=== PATIENT | male | born 1995 | race Caucasian/White ===

== ENCOUNTER → 2016-05-12 | Outpatient (REF) | payer MEDICAID ==
[~2016-05-12] MED LIST: DIVA250T7 PO; FLUO20CA9 PO; GEOD40CA2 PO; HYDR25T PO; LEXA1TAB PO; MINI2CAP PO; MIRT15TA3 PO; NO HOME MEDS; RISP0.5T3 PO; TRAZO50TA PO; VIST25CA PO; ZIPR20CA13 PO
[2016-05-12 14:01] LABS: ALBUMIN 4.1 GM/DL (3.2-5.2); ALBUMIN/GLOBULIN RATIO 1.37 (1.00-1.93); ALKALINE PHOSPHATASE 68 U/L (45-117); ALT/SGPT 29 U/L (12-78); ANION GAP 7 MEQ/L (8-16); AST/SGOT 16 U/L (15-37); BILIRUBIN,TOTAL 0.3 MG/DL (0.2-1.0); BLOOD UREA NITROGEN 15 MG/DL (7-18); CARBON DIOXIDE LEVEL 32 MEQ/L (21-32); CHLORIDE LEVEL 102 MEQ/L (98-107); CREATININE FOR GFR 0.88 MG/DL (0.70-1.30); GLUCOSE, FASTING 71 MG/DL (70-105); POTASSIUM SERUM 4.2 MEQ/L (3.5-5.1); SODIUM LEVEL 141 MEQ/L (136-145); TOTAL PROTEIN 7.1 GM/DL (6.4-8.2)
== END ==
LOC: M SFHCPLAZ 10:47
PROVIDERS: ATTEND Nurse Practitioner Adult Health
DX: R68.81 Early satiety (principal)

== ENCOUNTER → 2016-08-28 | Outpatient (CLI) | payer MEDICAID ==
--- NOTE | 2016-08-29 09:08 | EEG ---
DATE OF PROCEDURE: 08/28/2016 REFERRING PHYSICIAN: Dr. Ray Pride DIAGNOSES: Post-traumatic stress disorder and history of a passing out spell. This EEG was done to rule out epileptic potential. He is currently taking Geodon, Remeron, trazodone, Prozac. TECHNICAL DESCRIPTION: This digital EEG was recorded by 21 scalp, ear and two EKG electrodes and was reviewed in bipolar and referential montages following reformatting in 10-20 International Electrode Placement System. INTERPRETATION: The patient was noted to be in awake and drowsy states during this EEG. Resting awake background rhythm consisted of well-formed posterior dominant rhythm with anterior/posterior gradient comprising of 9 Hz alpha activity measuring 15 - 40 microvolts in amplitude, which was symmetric and reactive to eye opening. Low voltage mixed frequency activity was noted in anterior leads. Hyperventilation elicited mild theta slowing of background. Stage I and II sleep were reviewed and were symmetric bilaterally. Photic stimulation remained unremarkable. EKG revealed normal sinus rhythm. No focal, lateralizing or epileptiform abnormalities were seen. No clinical or electrographic seizures were recorded. CONCLUSION: This EEG in awake, drowsy states, stage I and II sleep is within normal limits.
== END ==
LOC: M SLEEP 10:58
PROVIDERS: ATTEND Nurse Practitioner Psychiatric/Mental Health
DX: F43.11 Post-traumatic stress disorder, acute (principal)

== ENCOUNTER → 2016-08-28 | Outpatient (CLI) | payer MEDICAID ==
--- NOTE | 2016-08-28 13:38 | REP ---
THORACIC SPINE, THREE VIEWS: HISTORY: Low back pain. There is no acute fracture or subluxation. The intervertebral discs are normal in height. There is minimal scoliosis of the upper thoracic spine, convex to the right and lower thoracic spine convex to the left. IMPRESSION: There is no acute fracture or subluxation. Signed by Theron Tello MD 08/28/2016 01:44 P
--- NOTE | 2016-08-28 13:39 | REP ---
LUMBAR SPINE, FIVE VIEWS: HISTORY: Back pain. COMPARISON: 08/15/2015 There is no acute fracture or subluxation. The intervertebral discs are normal in height. The facet joints are normal in appearance. IMPRESSION: There is no acute fracture or subluxation. Signed by Theron Tello MD 08/28/2016 01:44 P
== END ==
LOC: M RAD 12:33
PROVIDERS: ATTEND Nurse Practitioner Adult Health
DX: M54.5 Low back pain (principal)

== ENCOUNTER 2016-12-11 13:49 | Emergency (ER) | payer MEDICAID ==
[~2016-12-11] VITALS: Ht 154.9 cm; Wt 59.9 kg
[~2016-12-11 13:49] MED LIST changes: +FLUO20CA19 PO; -FLUO20CA9 PO; +HYDR-3363 PO; -HYDR25T PO
[2016-12-11] MEDS ORDERED: TRAZ50TA11 PO (14:07)
[2016-12-11] MEDS ORDERED: GEOD60CA PO (14:07)
[2016-12-11 14:20] LABS: BASO % 0.8 % (0.0-1.0); EOS # 0.1 K/mm3 (0.0-0.50); EOS % 1.7 % (0.0-3.0); LARGE UNSTAINED CELL # 0.1 K/mm3 (0.0-0.4); LYMPH # 2.7 K/mm3 (1.5-6.5); LYMPH % 51.8 % (24.0-44.0); MEAN CORPUSCULAR HEMOGLOBIN 30.9 pg (27.0-33.0); MEAN CORPUSCULAR HGB CONC 35.2 g/dl (32.0-36.5); MEAN CORPUSCULAR VOLUME 87.9 fl (80.0-96.0); MONO # 0.3 K/mm3 (0.0-0.8); MONO % 5.3 % (0.0-5.0); NEUTROPHILS # 1.9 K/mm3 (1.8-7.7); NEUTROPHILS % 38.5 % (36.0-66.0); PLATELET COUNT, AUTOMATED 211 k/mm3 (150-450); RED CELL DISTRIBUTION WIDTH 11.9 % (11.5-14.5)
[2016-12-11 14:43] LABS: ALBUMIN 4.2 GM/DL (3.2-5.2); ALKALINE PHOSPHATASE 47 U/L (45-117); ALT/SGPT 35 U/L (12-78); ANION GAP 8 MEQ/L (8-16); AST/SGOT 19 U/L (15-37); BILIRUBIN,DIRECT 0.2 MG/DL (0.0-0.2); BILIRUBIN,TOTAL 0.6 MG/DL (0.2-1.0); BLOOD UREA NITROGEN 17 MG/DL (7-18); CALCIUM LEVEL 9.1 MG/DL (8.5-10.1); CARBON DIOXIDE LEVEL 26 MEQ/L (21-32); CHLORIDE LEVEL 103 MEQ/L (98-107); CREATININE FOR GFR 1.11 MG/DL (0.70-1.30); GLOMERULAR FILTRATION RATE > 60.0 (>60); GLUCOSE, FASTING 129 MG/DL (70-105); POTASSIUM SERUM 3.3 MEQ/L (3.5-5.1); SODIUM LEVEL 137 MEQ/L (136-145); TOTAL PROTEIN 7.2 GM/DL (6.4-8.2)
[2016-12-11 15:56] LABS: METHADONE URINE NEGATIVE (NEGATIVE)
[2016-12-11] MEDS ORDERED: POTASSIUM CHLORIDE 10 MEQ SR TABLET PO ONE (16:15)
[2016-12-11 16:30] VITALS: BP 135/67
--- NOTE | 2016-12-11 21:00 | ECGEPIP ---
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
[2016-12-12] MEDS ORDERED: CBD oil (16:08)
[2016-12-12] MEDS ORDERED: kratom (16:08)
== END 2016-12-11 16:41 | disposition home or self-care (01) ==
LOC: M ED 13:49
DX: R55 Syncope and collapse (principal); F19.10 Other psychoactive substance abuse, uncomplicated; F41.9 Anxiety disorder, unspecified; F43.10 Post-traumatic stress disorder, unspecified; F60.3 Borderline personality disorder; F17.200 Nicotine dependence, unspecified, uncomplicated; Z79.899 Other long term (current) drug therapy; Z88.0 Allergy status to penicillin

== ENCOUNTER 2016-12-12 15:58 | Emergency (ER) | payer MEDICAID ==
[~2016-12-12] VITALS: Ht 167.6 cm; Wt 59.0 kg
[~2016-12-12 15:58] MED LIST changes: +GEOD60CA PO; +TRAZ50TA11 PO
[2016-12-12] MEDS ORDERED: CBD oil (16:08)
[2016-12-12] MEDS ORDERED: kratom (16:08)
[2016-12-12] MEDS ORDERED: NS 1,000 ML IV ONE (16:45)
[2016-12-12] MEDS ORDERED: ALPRAZolam 0.25 MG TAB PO ONE (16:45)
[2016-12-12 17:14] LABS: BASO % 0.2 % (0.0-1.0); EOS # 0.1 K/mm3 (0.0-0.50); EOS % 0.9 % (0.0-3.0); LARGE UNSTAINED CELL # 0.1 K/mm3 (0.0-0.4); LARGE UNSTAINED CELL % 1.4 % (0.0-4.0); LYMPH # 1.7 K/mm3 (1.5-6.5); LYMPH % 26.8 % (24.0-44.0); MEAN CORPUSCULAR HEMOGLOBIN 31.2 pg (27.0-33.0); MEAN CORPUSCULAR HGB CONC 35.6 g/dl (32.0-36.5); MEAN CORPUSCULAR VOLUME 87.7 fl (80.0-96.0); MONO # 0.2 K/mm3 (0.0-0.8); MONO % 3.7 % (0.0-5.0); NEUTROPHILS # 4.3 K/mm3 (1.8-7.7); NEUTROPHILS % 66.9 % (36.0-66.0); PLATELET COUNT, AUTOMATED 231 k/mm3 (150-450); RED CELL DISTRIBUTION WIDTH 11.7 % (11.5-14.5); WHITE BLOOD COUNT 6.5 K/mm3 (4.0-10.0)
[2016-12-12 17:37] LABS: METHADONE URINE NEGATIVE (NEGATIVE)
[2016-12-12 17:38] LABS: ANION GAP 8 MEQ/L (8-16); AST/SGOT 22 U/L (15-37); BLOOD UREA NITROGEN 12 MG/DL (7-18); CALCIUM LEVEL 9.5 MG/DL (8.5-10.1); CARBON DIOXIDE LEVEL 27 MEQ/L (21-32); CHLORIDE LEVEL 105 MEQ/L (98-107); CREATININE FOR GFR 0.97 MG/DL (0.70-1.30); GLOMERULAR FILTRATION RATE > 60.0 (>60); GLUCOSE, FASTING 98 MG/DL (70-105); POTASSIUM SERUM 3.3 MEQ/L (3.5-5.1); SODIUM LEVEL 140 MEQ/L (136-145)
[2016-12-12 17:39] LABS: ALBUMIN 4.6 GM/DL (3.2-5.2); ALBUMIN/GLOBULIN RATIO 1.53 (1.00-1.93); ALKALINE PHOSPHATASE 54 U/L (45-117); ALT/SGPT 38 U/L (12-78); BILIRUBIN,TOTAL 0.6 MG/DL (0.2-1.0); MAGNESIUM LEVEL 2.1 MG/DL (1.8-2.4); TOTAL PROTEIN 7.6 GM/DL (6.4-8.2)
--- NOTE | 2016-12-12 17:41 | ED PDOC ---
Post-Departure Follow-Up PT WAS SEEN IN THE ER YESTERDAY FOR SAME. WAS TOLD HIS POTASSIUM WAS "VERY LOW, THEY GAVE ME SOME AND SENT ME HOME." PT ALSO STATES THAT WHILE HE WAS IN THE ER YESTERDAY, "MY HEART RATE DIPPED DOWN TO [address] UP OVER 100 AND I TOLD THE NURSE TO SEND SOMEONE IN AND NO ONE EVEN CAME IN. I SAW IT ON THE MONITOR." FEMALE IN ROOM WITH PT STATED, "I DON'T KNOW IF HE'S SAFE AT HOME WHEN HE'S LIKE THIS." PT STATES THIS ALL BEGAN "WHEN I OVERDOSED AT WORK. I TAKE KRATOM THAT I BUY ONLINE AND I TOOK TOO MUCH OF IT AND IT CAN CAUSE RESPIRATORY DEPRESSION AND SINCE THEN MY BODY HAS BEEN DETERIORATING." PT'S POTASSIUM YESTERDAY WAS 3.3. PT SITTING IN WHEEL CHAIR IN EXAM ROOM WITH FINGERS FOLDED IN, NO CARPO-SPASM NOTED AND PT STATES, "MY BODY KEEPS SPASMING. " NO HYPERVENTILATION NOTED, PT WITH CALM RESPIRATIONS IN EXAM ROOM. LAWRENCE CROOKS PA-C Dec 12, 2016 17:41
[2016-12-12 17:48] VITALS: BP 129/73
--- NOTE | 2016-12-12 18:06 | REP ---
CHEST, TWO VIEWS: There is no evidence of acute infiltrate. No pleural effusion is seen. The heart is normal in size. The mediastinal silhouette is unremarkable. The visualized osseous structures are intact. IMPRESSION: No acute pulmonary disease. Signed by Wilfrido Johnson MD 12/15/2016 12:48 P
--- NOTE | 2016-12-12 20:00 | ECGEPIP ---
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 12/11/16 - RATE DECREASED Electronically Signed On 12-12-2016 20:00:40 EDT by Diane Shi
== END 2016-12-12 18:22 | disposition home or self-care (01) ==
LOC: M ED 15:58
DX: F41.9 Anxiety disorder, unspecified (principal); R07.89 Other chest pain; R94.31 Abnormal electrocardiogram [ECG] [EKG]; F32.9 Major depressive disorder, single episode, unspecified; F10.10 Alcohol abuse, uncomplicated; G40.909 Epilepsy, unspecified, not intractable, without status epilepticus; Z79.899 Other long term (current) drug therapy; Z88.0 Allergy status to penicillin
CPT/HCPCS: 36415; 71020; 80053; 80307; 82550; 82553; 83735; 85025; 85379; 93005; 93041; 96360; 99284; G0480

== ENCOUNTER → 2016-12-16 | Outpatient (CLI) | payer MEDICAID ==
[~2016-12-16] MED LIST changes: +CBD oil; +ISOVUE-370 76% 100ML VIAL (Q9967) As Ordered ONE; +kratom
--- NOTE | 2016-12-16 18:55 | REP ---
REASON: Dyspnea and chest pain. COMPARISON: None. There is excellent visualization of the pulmonary arterial vasculature. There are no focal filling defects present that would be considered consistent with pulmonary emboli. There are no pleural or pericardial effusions. There is no mediastinal or hilar adenopathy. The imaged upper abdomen and imaged osseous structures are within normal limits. Evaluation of the lung altamirano show no abnormal nodules, masses, or opacities. IMPRESSION: Normal exam. Signed by Rory Adams DO 12/16/2016 07:49 P
== END ==
LOC: M RAD 16:47
PROVIDERS: ATTEND Nurse Practitioner Adult Health
DX: R06.02 Shortness of breath (principal)

== ENCOUNTER → 2016-12-23 | Outpatient (CLI) | payer MEDICAID ==
[~2016-12-23] MED LIST changes: -ISOVUE-370 76% 100ML VIAL (Q9967) As Ordered ONE; +METHACHOLINE KIT (J7674) INH ONE
--- NOTE | 2016-12-23 16:34 | PFTRPT ---
Tech: Rashmi WALLER RRT Age: 21 Sex: Male Race: Height: 66.00 Inches Weight: 135.00 Lbs BSA: 1.69 Diagnosis: R06.02 METHACHOLINE CHALLENGE REPORT: ORDERING PROVIDER: SHANNON Hernandez DATE OF SERVICE: 12/23/16 INTERPRETATION: The study was of excellent technical quality. Under protocol, methacholine was administered. At a dose of 2.5 mg (13.875 CDUs), a 36% decline in the FEV1 was noted. The PC20 of 0.72 is significant. Flow rates returned to baseline post bronchodilator administration. IMPRESSION: Positive methacholine challenge study. MTDD
--- NOTE | 2016-12-23 16:34 | PFTRPT ---
Tech: Rashmi WALLER RRT Age: 21 Sex: Male Race: Height: 66.00 Inches Weight: 135.00 Lbs BSA: 1.69 Diagnosis: R06.02 PULMONARY FUNCTION REPORT ORDERING PROVIDER: SHANNON Hernandez DATE OF SERVICE: 12/23/16 SPIROMETRY: Excellent technical quality. The forced vital capacity is normal. The FEV1 is in proportion. The obstructive index is, therefore, normal. FLOW VOLUME LOOP: The expiratory limb of the flow volume loop is normal. LUNG VOLUMES: The total lung capacity is normal. The residual volume is in proportion. DIFFUSION CAPACITY: The diffusion capacity is normal. HEMOGLOBIN: No hemoglobin is available for correction. AIRWAY MECHANICS: Airways resistance and conductance are normal. IMPRESSION: Normal study. MTDD
== END ==
LOC: M CARPUL 15:30
PROVIDERS: ATTEND Nurse Practitioner Adult Health
DX: R06.02 Shortness of breath (principal)
CPT/HCPCS: 94010; 94070; 94726; 94729; J7674

== ENCOUNTER 2017-06-04 15:02 | Emergency (ER) | payer MEDICAID ==
[2017-06-04 17:31] LABS: BASO % 0.5 % (0.0-1.0); EOS # 0.1 10^3/uL (0.0-0.50); EOS % 1.4 % (0.0-3.0); HEMATOCRIT 45.3 % (42.0-52.0); HEMOGLOBIN 16.4 g/dl (14.0-18.0); IMMATURE GRANULOCYTE % 0.2 % (0-0); LYMPH # 2.2 10^3/uL (1.5-6.5); LYMPH % 33.8 % (24.0-44.0); MEAN CORPUSCULAR HEMOGLOBIN 30.7 pg (27.0-33.0); MEAN CORPUSCULAR HGB CONC 36.2 g/dl (32.0-36.5); MEAN CORPUSCULAR VOLUME 84.7 fl (80.0-96.0); MONO # 0.4 10^3/uL (0.0-0.8); MONO % 5.7 % (0.0-5.0); NEUTROPHILS # 3.8 10^3/uL (1.8-7.7); NEUTROPHILS % 58.4 % (36.0-66.0); PLATELET COUNT, AUTOMATED 227 10^3/uL (150-450); RED BLOOD COUNT 5.35 10^6/uL (4.30-6.10); RED CELL DISTRIBUTION WIDTH 11.8 % (11.5-14.5); WHITE BLOOD COUNT 6.5 10^3/uL (4.0-10.0)
[2017-06-04 17:40] LABS: APPEARANCE, URINE CLEAR (CLEAR); BACTERIA, URINE AUTO NEGATIVE (NEGATIVE); BILIRUBIN, URINE AUTO NEGATIVE (NEGATIVE); BLOOD, URINE BLOOD NEGATIVE (NEGATIVE); COLOR, URINE STRAW (YELLOW); GLUCOSE, URINE (UA) AUTO NEGATIVE (NEGATIVE); KETONE, URINE AUTO NEGATIVE (NEGATIVE); LEUKOCYTE ESTERASE, URINE AUTO NEGATIVE (NEGATIVE); NITRITE, URINE AUTO NEGATIVE (NEGATIVE); PROTEIN, URINE AUTO NEGATIVE (NEGATIVE); RBC, URINE AUTO 0 /HPF (0-3); SPECIFIC GRAVITY URINE AUTO 1.001 (1.002-1.035); SQUAMOUS EPITHELIAL CELL UR AU 0 /HPF (0-6); UROBILINOGEN, URINE AUTO 0.2 mg/dL (0.0-2.0); WBC, URINE AUTO 0 /HPF (0-3)
[2017-06-04 18:01] LABS: ALBUMIN 4.5 GM/DL (3.2-5.2); ALBUMIN/GLOBULIN RATIO 1.61 (1.00-1.93); ALKALINE PHOSPHATASE 53 U/L (45-117); ALT/SGPT 46 U/L (12-78); ANION GAP 7 MEQ/L (8-16); AST/SGOT 18 U/L (7-37); BILIRUBIN,DIRECT 0.2 MG/DL (0.0-0.2); BILIRUBIN,TOTAL 0.5 MG/DL (0.2-1.0); BLOOD UREA NITROGEN 14 MG/DL (7-18); CALCIUM LEVEL 8.8 MG/DL (8.5-10.1); CARBON DIOXIDE LEVEL 27 MEQ/L (21-32); CHLORIDE LEVEL 107 MEQ/L (98-107); CPK CREATINE PHOSPHOKINASE 161 U/L (39-308); CREATININE FOR GFR 0.83 MG/DL (0.70-1.30); GLOMERULAR FILTRATION RATE > 60.0 (>60); GLUCOSE, FASTING 92 MG/DL (70-100); LIPASE 186 U/L (73-393); MAGNESIUM LEVEL 2.2 MG/DL (1.8-2.4); POTASSIUM SERUM 3.8 MEQ/L (3.5-5.1); SODIUM LEVEL 141 MEQ/L (136-145); TOTAL PROTEIN 7.3 GM/DL (6.4-8.2); TROPONIN I < 0.02 NG/ML (< 0.10)
[2017-06-04 18:07] LABS: CK-MB VALUE MASS 1.4 NG/ML (0.0-3.6); FREE T4 0.92 NG/DL (0.76-1.46); MB/CK RELATIVE INDEX 0.86 (< OR =4); THYROID STIMULATING HORMONE 0.766 uIU/ML (0.358-3.740)
== END 2017-06-04 18:32 | disposition home or self-care (01) ==
LOC: M ED 15:02
DX: R07.89 Other chest pain (principal); R19.7 Diarrhea, unspecified; F17.200 Nicotine dependence, unspecified, uncomplicated
CPT/HCPCS: 93005

== ENCOUNTER 2018-03-16 20:11 | Emergency (ER) | payer MEDICAID | END 2018-03-16 22:50 | disposition left against medical advice (07) | LOC: M ED 20:11 | DX: Z53.29 Procedure and treatment not carried out because of patient's decision for other reasons (principal) ==

== ENCOUNTER → 2018-08-02 | Outpatient (REF) | payer OTHER ==
[~2018-08-02] MED LIST changes: +GEOD40CA13 PO; -GEOD40CA2 PO; +MELA1TAB15 PO; -METHACHOLINE KIT (J7674) INH ONE; +TRAZ-160 PO; -TRAZ50TA11 PO
[2018-08-04 10:28] LABS: HIV 1&2 SCREEN CENTAUR NEGATIVE (NEGATIVE)
== END ==
LOC: M SFHCPLAZ 14:52
PROVIDERS: ATTEND Nurse Practitioner Adult Health
DX: K14.8 Other diseases of tongue (principal); Z20.6 Contact with and (suspected) exposure to human immunodeficiency virus [HIV]

== ENCOUNTER 2019-01-03 20:02 | Inpatient (IN) | payer OTHER ==
[~2019-01-03] VITALS: Ht 167.6 cm; Wt 66.7 kg
[~2019-01-03 20:02] MED LIST changes: -TRAZ-160 PO; +TRAZ-252 PO; +TRAZ1TAB6 PO; -TRAZO50TA PO
[2019-01-03] MEDS ORDERED: LORazepam 2 MG/ML VIAL (J2060) IV ONE (20:45)
[2019-01-03] MEDS ORDERED: NS 1,000 ML IV ONE ×2 (20:45→22:00)
[2019-01-03 21:07] LABS: BASO % 0.3 % (0.0-1.0); EOS # 0.1 10^3/uL (0.0-0.5); EOS % 1.1 % (0.0-3.0); HEMATOCRIT 40.9 % (42.0-52.0); HEMOGLOBIN 14.5 g/dl (13.5-17.5); MEAN CORPUSCULAR HEMOGLOBIN 31.4 pg (27.0-33.0); MEAN CORPUSCULAR HGB CONC 35.5 g/dl (32.0-36.5); MEAN CORPUSCULAR VOLUME 88.5 fl (80.0-96.0); MONO # 0.7 10^3/uL (0.0-0.8); MONO % 10.8 % (0.0-5.0); NEUTROPHILS # 4.7 10^3/uL (1.5-8.5); NEUTROPHILS % 72.5 % (36.0-66.0); PLATELET COUNT, AUTOMATED 146 10^3/uL (150-450); RED BLOOD COUNT 4.62 10^6/uL (4.30-6.10); WHITE BLOOD COUNT 6.5 10^3/uL (4.0-10.0)
[2019-01-03 21:39] LABS: ACETAMINOPHEN LEVEL < 2.0 UG/ML (10.0-30.0); ALBUMIN 3.8 GM/DL (3.2-5.2); ALT/SGPT 32 U/L (12-78); BILIRUBIN,TOTAL 1.3 MG/DL (0.2-1.0); BLOOD UREA NITROGEN 14 MG/DL (7-18); CALCIUM LEVEL 8.8 MG/DL (8.5-10.1); CARBON DIOXIDE LEVEL 26 MEQ/L (21-32); CHLORIDE LEVEL 101 MEQ/L (98-107); CK-MB VALUE MASS 1.5 NG/ML (<3.6); CPK CREATINE PHOSPHOKINASE 181 U/L (39-308); CREATININE FOR GFR 0.76 MG/DL (0.70-1.30); ETHYL ALCOHOL (ETHANOL) < 0.003 % (0.000-0.010); GLOMERULAR FILTRATION RATE > 60.0 (>60); GLUCOSE, FASTING 79 MG/DL (70-100); MB/CK RELATIVE INDEX 0.83 (< OR =4); POTASSIUM SERUM 3.4 MEQ/L (3.5-5.1); SALICYLATE LEVEL < 1.7 MG/DL (5.0-30.0); SODIUM LEVEL 138 MEQ/L (136-145); THYROID STIMULATING HORMONE 0.424 uIU/ML (0.358-3.740); TOTAL PROTEIN 6.6 GM/DL (6.4-8.2); TROPONIN I < 0.02 NG/ML (< 0.10)
[2019-01-03] MEDS ORDERED: ACETAMINOPHEN TAB 650MG DOSE (2X325MG) PO ONE (22:00)
[2019-01-04 00:04] LABS: AMPHETAMINES LEVEL URINE NEGATIVE (NEGATIVE); BARBITURATES URINE NEGATIVE (NEGATIVE); BENZODIAZEPINES URINE NEGATIVE (NEGATIVE); CANNABINOIDS URINE NEGATIVE (NEGATIVE); COCAINE METABOLITE URINE NEGATIVE (NEGATIVE); METHADONE URINE NEGATIVE (NEGATIVE); OPIATES URINE NEGATIVE (NEGATIVE); PHENCYCLIDINE URINE NEGATIVE (NEGATIVE)
--- NOTE | 2019-01-04 00:52 | ECGEPIP ---
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
--- NOTE | 2019-01-04 07:44 | REP ---
Clinical: Fever . Comparison: 12/12/2016, 07/21/2018 . Findings: The mediastinum and cardiac silhouette are stable and within normal limits for portable technique. The lung altamirano are clear without acute consolidation, effusion, or pneumothorax. Skeletal structures are intact. Impression: No acute cardiopulmonary process appreciated. Electronically Signed by Leoncio Perez MD 01/04/2019 07:35 A
[2019-01-04] MEDS ORDERED: MOM 30ML SUSPENSION UDC PO PRN (16:00)
[2019-01-04] MEDS ORDERED: MAALOX 30 ML SUSP *UDC PO PRN (16:00)
[2019-01-04] MEDS ORDERED: LORazepam 1 MG TAB PO ONE (16:15)
[2019-01-04 22:03] VITALS: BP 124/73
[2019-01-04] MEDS: traZODone 50 MG TAB PO PRN (22:59)
[2019-01-05 07:05] VITALS: BP 103/55
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
--- NOTE | 2019-01-05 14:30 | HPE ---
DATE OF ADMISSION: 01/04/2019 HISTORY OF PRESENT ILLNESS: Patient is a 23-year-old male who is currently admitted to the inpatient mental health unit for depression. Patient says that he came into the hospital because he was feeling overwhelmed and he needed to get admitted into a mental health facility in order to get better. Patient reports that he does not have any chronic medical conditions. Patient says he does have a seizure history in the past due to a traumatic brain injury back when he was 9 years old. Patient says that he has not had a seizure for sometime stating his last in June. Patient says that he may have had a seizure either yesterday or today but he was told he did not have a seizure. In the emergency room, patient was found to have a fever of 101.2. While in the emergency room, patient's fever resolved and he has been afebrile every since. A chest x-ray was performed and did not show anything. Patient says he usually has a high body temperature for which he usually eats ice for. PAST MEDICAL HISTORY: Patient reports a past medical history of depression, anxiety, traumatic brain injury at the age of 9 and seizure history with the last reported seizure in June of 2018. PAST SURGICAL HISTORY: Patient denies any surgeries. ALLERGIES: Patient is allergic to PENICILLIN, BACITRACIN, NEOMYCIN POLYMYXIN B. MEDICATIONS: The patient does not take any medications at home. FAMILY HISTORY: Patient says he does not know his family history. SOCIAL HISTORY: Patient is a nkje-yth-voh smoker since he was 18. Started smoking at the age of 16. Patient says he quit drinking alcohol earlier this year. Patient says he quit using marijuana within the past couple of months and he also admits to IV drug use with puma being the drug he was injecting. Patient says he was tested for hepatitis C and has been negative in the past since his last IV drug use. REVIEW OF SYSTEMS: CONSTITUTIONAL: Patient denies fevers or chills. HEENT: Patient denies headache, blurry vision or sore throat. CARDIOVASCULAR: Patient denies chest pain. RESPIRATORY: Patient denies shortness of breath or cough. GASTROINTESTINAL: Patient denies abdominal pain, nausea or vomiting or diarrhea. GENITOURINARY: Patient denies any pain or difficulty with urination. NEUROLOGIC: Patient denies any numbness or tingling in his extremities. EXTREMITIES: Patient denies any pain or swelling in his extremities. SKIN: Patient denies any rashes or lesions of the skin. LYMPHATIC: Patient says he has some small lymph nodes in his neck and groin, which he says he has seen a doctor for who was concerned but he missed the followup appointment on them. Patient says they have been growing in size, however, they do not bother him and they are not tender. HEMATOLOGIC: Patient denies any easy bruising. PHYSICAL EXAMINATION: VITALS: 98.0, pulse 61, respiratory rate 12, blood pressure 103/55, pulse ox 98% in room air. GENERAL: He is alert and oriented male patient who was cooperative during the examination and was able to answer questions appropriately. Patient did not appear to be in any acute distress. HEENT: Normocephalic, atraumatic with anicteric sclerae. Patient has moist mucous membranes and posterior pharynx is not erythematous. NECK: Supple with shotty lymphadenopathy in the anterior cervical chain. There is no lymphadenopathy palpated in the posterior cervical chain, periauricular or submandibular nodes. CARDIOVASCULAR: Regular rate and rhythm with normal S1, and normal S2 with no murmurs, rubs or gallops. RESPIRATORY: Clear to auscultation bilaterally with on wheezes, rhonchi or rales. ABDOMEN: Normoactive bowel sounds. Soft, mild tenderness to the left upper quadrant. No tenderness to palpation in the other quadrants. GROIN: Shotty 0.5 cm lymph nodes in the groin. There was no axillary lymph node palpated. NEUROLOGICAL: Patient was able to move all four extremities. Patient reported good sensation to light touch in all four extremities. EXTREMITIES: There was pretibial edema. Pulses: Radial and dorsalis pedis were equal bilaterally. SKIN: Skin of the arms, legs, head and neck was examined. There is no evidence of rash. CBC: White blood cells 6.5, hemoglobin 14.5, hematocrit 40.9, platelet count 146. Sodium 138, potassium 3.4, chloride 101, bicarbonate 26, BUN 14, creatinine 0.76, glucose 79, calcium 8.8. Bilirubin 1.3, AST 23, ALT 32, alkaline phosphatase 72. Creatinine kinase 181, CK MB 1.5, troponin 0.02, protein 6.6, albumin 3.8. TSH 0.42. Tox screen was negative. Patient's alcohol level is also negative. IMAGING: A chest x-ray performed on 01/03/2019 showed no acute cardiopulmonary process. ASSESSMENT/PLAN: Patient is a 23-year-old male who is admitted into the inpatient mental health unit for further evaluation for depression and a "mental breakdown". 1. Psychiatric illness which he will follow the recommendations for psychiatry. 2. Seizure history: Patient reports that he has not had a seizure for about 6- 7 months. At this time patient is currently not on any medication. We will continue to monitor the patient should he need to have any antiseizure medications. At this time, I think we can continue without any antiseizure medication. Patient is advised to followup with his primary care provider after discharge for further workup and evaluation and treatment for possible seizure activity. Seizure activity seems like it is a sequelae of the patient's brain injury that the patient had when he was 9 years old. PLAN: Other than the seizure activity patient is medically cleared and if there are any questions, please do not hesitate to contact us. I performed a history and physical examination of the patient and discussed their management with the above documenter. I reviewed the note and agree with the documented findings and plan of care. RIOS
[2019-01-05 16:33] VITALS: BP 140/75
[2019-01-05] MEDS ORDERED: PALIPERIDONE 3 MG ER TAB (INVEGA) PO SCH (21:00)
[2019-01-05] MEDS: traZODone 50 MG TAB PO PRN (21:41)
[2019-01-06 06:50] VITALS: BP 100/55
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
[2019-01-06] MEDS: NICOTINE 21MG/24HR 1 EA TRANSDERMAL TD SCH (12:26)
[2019-01-06 17:30] VITALS: BP 124/78
[2019-01-06] MEDS: LORazepam 0.5 MG TAB PO PRN (18:01)
[2019-01-06] MEDS: ACETAMINOPHEN TAB 650MG DOSE (2X325MG) PO PRN (19:51)
[2019-01-06] MEDS: traZODone 100 MG TAB PO PRN (20:43)
[2019-01-07 06:53] VITALS: BP 126/63
[2019-01-07] MEDS: PALIPERIDONE 3 MG ER TAB (INVEGA) PO SCH (08:30)
[2019-01-07] MEDS: NICOTINE 21MG/24HR 1 EA TRANSDERMAL TD SCH ×2 (08:31→14:34)
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
[2019-01-07] MEDS: LORazepam 0.5 MG TAB PO PRN (13:34)
[2019-01-07] MEDS: ACETAMINOPHEN TAB 650MG DOSE (2X325MG) PO PRN (13:35)
[2019-01-07 18:16] VITALS: BP 137/74
[2019-01-07] MEDS: traZODone 100 MG TAB PO PRN (20:52)
[2019-01-08 06:05] VITALS: BP 115/55
[2019-01-08] MEDS: PALIPERIDONE 3 MG ER TAB (INVEGA) PO SCH (08:15)
[2019-01-08] MEDS: NICOTINE 21MG/24HR 1 EA TRANSDERMAL TD SCH (08:17)
[2019-01-08] MEDS: LORazepam 0.5 MG TAB PO PRN (08:18)
[2019-01-08] MEDS ORDERED: PILL CUTTER 1 EACH XX PRN (10:00)
[2019-01-08 16:27] VITALS: BP 140/70
[2019-01-08] MEDS: ACETAMINOPHEN TAB 650MG DOSE (2X325MG) PO PRN (20:48)
[2019-01-08] MEDS: traZODone 100 MG TAB PO PRN (20:48)
--- NOTE | 2019-01-08 21:51 | MHIPN ---
DATE: 01/08/2019 The patient today states "I am doing pretty good." He says that he is still having some depression on and off. He had some nightmares last night and that was really disturbing to him. MENTAL STATUS EXAMINATION: This patient is alert and oriented times three. He is verbally spontaneous. No formal thought disorder noted. Eye contact is fairly good. Mood is "pretty good." Affect is restricted but appropriate to mood. He is not psychotic, suicidal or homicidal. Concentration is good. Memory intact. Insight and judgment fair. DIAGNOSES: 1. Unspecified impulse/conduct disorder. 2. Rule out personality disorder versus substance induced. 3. Stimulant use disorder, unspecified. 4. Hallucinogen use disorder, unspecified. 5. Tobacco use disorder, severe . TREATMENT PLAN: At this point, we will continue to further evaluate this patient for continued elevation and stabilization of his mood and of his behavior and for continued resolution of any suicidal or homicidal ideation.
[2019-01-09 06:49] VITALS: BP 100/80
[2019-01-09] MEDS: NICOTINE 21MG/24HR 1 EA TRANSDERMAL TD SCH ×2 (08:59→19:05)
[2019-01-09] MEDS: PALIPERIDONE 3 MG ER TAB (INVEGA) PO SCH (08:59)
[2019-01-09] MEDS: ACETAMINOPHEN TAB 650MG DOSE (2X325MG) PO PRN ×2 (09:47→19:05)
[2019-01-09 16:40] VITALS: BP 122/67
[2019-01-09] MEDS: traZODone 100 MG TAB PO PRN (21:22)
[2019-01-09] MEDS: LORazepam 0.5 MG TAB PO PRN (21:22)
[2019-01-10 06:50] VITALS: BP 105/60
[2019-01-10] MEDS: PALIPERIDONE 3 MG ER TAB (INVEGA) PO SCH (09:00)
[2019-01-10] MEDS: NICOTINE 21MG/24HR 1 EA TRANSDERMAL TD SCH (09:00)
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
[2019-01-10] MEDS ORDERED: NICO21PAT TD (09:04)
== END 2019-01-10 13:30 | disposition home or self-care (01) | DRG 758 ==
LOC: M ED 20:02 → M ED INP 01-04 15:56 → M PSY 01-04 22:00
PROVIDERS: ADMIT Psychiatry & Neurology Addiction Medicine; ATTEND Psychiatry & Neurology Addiction Medicine
DX: F63.9 Impulse disorder, unspecified (principal); R45.850 Homicidal ideations; G40.909 Epilepsy, unspecified, not intractable, without status epilepticus; F15.90 Other stimulant use, unspecified, uncomplicated; F17.200 Nicotine dependence, unspecified, uncomplicated; F19.94 Other psychoactive substance use, unspecified with psychoactive substance-induced mood disorder; F43.10 Post-traumatic stress disorder, unspecified; F16.90 Hallucinogen use, unspecified, uncomplicated; Z91.410 Personal history of adult physical and sexual abuse; Z88.0 Allergy status to penicillin; Z88.8 Allergy status to other drugs, medicaments and biological substances

== ENCOUNTER 2019-02-12 18:34 | Emergency (ER) | payer OTHER ==
[~2019-02-12] VITALS: Ht 167.6 cm; Wt 63.6 kg
[~2019-02-12 18:34] MED LIST changes: +NICO21PAT TD
[2019-02-12 19:43] LABS: INFLUENZA A AMPLIFICATION NEGATIVE (NEGATIVE); INFLUENZA B AMPLIFICATION NEGATIVE (NEGATIVE)
[2019-02-12] MEDS ORDERED: DOXY100C (19:44)
[2019-02-12 19:59] LABS: HEMATOCRIT 48.6 % (42.0-52.0); HEMOGLOBIN 17.1 g/dl (13.5-17.5); MEAN CORPUSCULAR HEMOGLOBIN 30.6 pg (27.0-33.0); MEAN CORPUSCULAR HGB CONC 35.2 g/dl (32.0-36.5); MEAN CORPUSCULAR VOLUME 87.1 fl (80.0-96.0); PLATELET COUNT, AUTOMATED 139 10^3/uL (150-450); RED BLOOD COUNT 5.58 10^6/uL (4.30-6.10); WHITE BLOOD COUNT 2.6 10^3/uL (4.0-10.0)
[2019-02-12 20:15] LABS: ERYTHROCYTE SEDIMENTATION RATE 2 mm/hr (0-15)
[2019-02-12 20:21] LABS: ATYPICAL LYMPH 12 % (0-5); LYMPHOCYTES 40 % (16-44); MONOCYTES 2 % (0-5); NEUTROPHILS 46 % (28-66)
[2019-02-12 20:22] LABS: PLATELET ESTIMATE DECREASED (NORMAL)
[2019-02-12 20:25] LABS: BLOOD UREA NITROGEN 16 MG/DL (7-18); C REACTIVE PROTEIN QUANTITATIV 3.97 MG/DL (0.00-0.30); CALCIUM LEVEL 8.6 MG/DL (8.5-10.1); CARBON DIOXIDE LEVEL 29 MEQ/L (21-32); CHLORIDE LEVEL 104 MEQ/L (98-107); CREATININE FOR GFR 0.93 MG/DL (0.70-1.30); GLOMERULAR FILTRATION RATE > 60.0 (>60); GLUCOSE, FASTING 90 MG/DL (70-100); POTASSIUM SERUM 4.2 MEQ/L (3.5-5.1); SODIUM LEVEL 138 MEQ/L (136-145)
[2019-02-12 20:59] LABS: MONO SCRN NEGATIVE (NEGATIVE)
[2019-02-12 21:27] VITALS: BP 140/70
--- NOTE | 2019-02-13 09:02 | REP ---
REASON: Pyrexia. COMPARISON: Multiple, the latest 01/03/2019. TWO-VIEW CHEST: COMPARISON: No priors. FINDINGS: The superior mediastinal structures are midline. The cardiac silhouette is unremarkable in size, shape, and position. The diaphragmatic surfaces of the lungs are regular, and the costophrenic angles are clear. The pulmonary altamirano are clear. The imaged osseous structures are intact. IMPRESSION: There is no acute cardiopulmonary disease. Electronically Signed by Rory Adams DO 02/13/2019 09:11 A
--- NOTE | 2019-02-13 19:04 | ECGEPIP ---
[facility] - ED Test Date: 2019-02-12 Pat Name: JODI SALGADO Department: Room: - Gender: Male Critical Care Paramedic: : 1995 Requested By: ANNIE MERCHANT PA-C. Order Number: [id number] Reading MD: Emmanuel Hendrix Measurements Intervals [place] Rate: 64 P: 58 NH: 163 QRS: 47 QRSD: 89 T: 13 QT: 346 QTc: 358 Interpretive Statements SINUS RHYTHM WITH SINUS ARRHYTHMIA NONSPECIFIC T-WAVE ABNORMALITY Similar to tracing done 06-04-17 Electronically Signed on 02-13-2019 19:04:29 EDT by Emmanuel Hendrix
[2019-02-16 00:08] LABS: EBV AB TO NUCLEAR ANTIGEN <18.0 U/mL (0.0-17.9); EBV VIRAL CAPSID AG IgG 64.1 U/mL (0.0-17.9); EBV VIRAL CAPSID AG IgM <36.0 U/mL (0.0-35.9)
== END 2019-02-12 21:38 | disposition home or self-care (01) ==
LOC: M ED 18:34
DX: R50.9 Fever, unspecified (principal); D72.820 Lymphocytosis (symptomatic); D72.819 Decreased white blood cell count, unspecified; R94.31 Abnormal electrocardiogram [ECG] [EKG]; F17.210 Nicotine dependence, cigarettes, uncomplicated; Z88.0 Allergy status to penicillin; Z88.1 Allergy status to other antibiotic agents; Z88.4 Allergy status to anesthetic agent

== ENCOUNTER 2019-02-19 18:31 | Emergency (ER) | payer OTHER ==
[~2019-02-19] VITALS: Ht 167.6 cm; Wt 64.3 kg
[~2019-02-19 18:31] MED LIST changes: +DOXY100C
[2019-02-19] MEDS ORDERED: NS 1,000 ML IV ONE (19:15)
[2019-02-19] MEDS ORDERED: ONDANSETRON 4MG/2ML VIAL (J2405) IV ONE (19:15)
[2019-02-19 19:28] LABS: HEMATOCRIT 45.1 % (42.0-52.0); HEMOGLOBIN 15.3 g/dl (13.5-17.5); MEAN CORPUSCULAR HEMOGLOBIN 30.2 pg (27.0-33.0); MEAN CORPUSCULAR HGB CONC 33.9 g/dl (32.0-36.5); MEAN CORPUSCULAR VOLUME 89.1 fl (80.0-96.0); PLATELET COUNT, AUTOMATED 185 10^3/uL (150-450); RED BLOOD COUNT 5.06 10^6/uL (4.30-6.10); WHITE BLOOD COUNT 3.5 10^3/uL (4.0-10.0)
[2019-02-19 20:00] LABS: ALBUMIN 2.8 GM/DL (3.2-5.2); ALT/SGPT 3264 U/L (12-78); BILIRUBIN,TOTAL 9.3 MG/DL (0.2-1.0); BLOOD UREA NITROGEN 7 MG/DL (7-18); CALCIUM LEVEL 8.4 MG/DL (8.5-10.1); CARBON DIOXIDE LEVEL 32 MEQ/L (21-32); CHLORIDE LEVEL 103 MEQ/L (98-107); GLOMERULAR FILTRATION RATE > 60.0 (>60); GLUCOSE, FASTING 117 MG/DL (70-100); LIPASE 249 U/L (73-393); POTASSIUM SERUM 4.2 MEQ/L (3.5-5.1); SODIUM LEVEL 140 MEQ/L (136-145); TOTAL PROTEIN 5.5 GM/DL (6.4-8.2)
[2019-02-19 20:13] LABS: ATYPICAL LYMPH 23 % (0-5); BASOPHILS 3 % (0-1); EOSINOPHILS 5 % (0-3); LYMPHOCYTES 22 % (16-44); MONOCYTES 3 % (0-5); NEUTROPHILS 44 % (28-66)
[2019-02-19] MEDS ORDERED: ISOVUE-370 76% 100ML VIAL (Q9967) As Ordered ONE (20:13)
[2019-02-19 20:14] LABS: PLATELET ESTIMATE NORMAL (NORMAL)
[2019-02-19] MEDS ORDERED: ACETAMINOPHEN 325 MG TAB PO ONE (20:30)
[2019-02-19] MEDS ORDERED: KETOROLAC 30 MG/ML VIAL (J1885) IV ONE (20:30)
--- NOTE | 2019-02-19 21:22 | REPVR ---
PROCEDURE INFORMATION: Exam: CT Abdomen And Pelvis With Contrast Exam date and time: 02/19/2019 8:17 PM Clinical history: 23 years old, male; Abdominal pain; Epigastric; Additional info: Epigastric pain, elev lfts, fever TECHNIQUE: Imaging protocol: Computed tomography of the abdomen and pelvis with intravenous contrast. Radiation optimization: All CT scans at this facility use at least one of these dose optimization techniques: automated exposure control; mA and/or kV adjustment per patient size (includes targeted exams where dose is matched to clinical indication); or iterative reconstruction. Contrast material: ISOVUE 370; Contrast volume: 100 ml; Contrast route: IV; COMPARISON: CT ABD PELVIS WITH CONTRAST 09/05/2015 12:38 AM FINDINGS: Liver: Diffuse fatty infiltration of the liver. No focal hepatic lesion. Mild periportal tracking, nonspecific. Gallbladder and bile ducts: Mild wall thickening of the gallbladder is likely secondary to contraction. Pancreas: Unremarkable. No ductal dilation. Spleen: The spleen is slightly enlarged. While the heterogeneity to the spleen is likely secondary to enhancement characteristics, underlying splenic lesions are not excluded. Followup evaluation with ultrasound of the spleen is recommended. Adrenals: Normal. No mass. Kidneys and ureters: Unremarkable. No stones. No hydronephrosis. Stomach and bowel: Unremarkable. No obstruction. No mucosal thickening. Appendix: No evidence of appendicitis. Intraperitoneal space: Unremarkable. No free air. No significant fluid collection. Vasculature: Unremarkable. No abdominal aortic aneurysm. Lymph nodes: Small nonspecific lymph nodes within the retroperitoneum and small bowel mesentery. Bladder: Unremarkable as visualized. Reproductive: Unremarkable as visualized. Bones/joints: No acute fracture. Soft tissues: Unremarkable. IMPRESSION: 1. Diffuse fatty infiltration of the liver. 2. Mild hepatic periportal tracking, nonspecific. 3. Mild splenomegaly. Possible low-density splenic lesions. Followup evaluation with ultrasound of the spleen is recommended. 4. Trace ascites within the lower pelvis. Electronically signed by: Cade James On 02/19/2019 21:22:41 PM
[2019-02-19 21:27] LABS: CPK CREATINE PHOSPHOKINASE 51 U/L (39-308)
[2019-02-19 21:50] LABS: INR 1.33; PROTHROMBIN TIME 16.3 SECONDS (11.8-14.0)
--- NOTE | 2019-02-19 23:12 | REPVR ---
PROCEDURE INFORMATION: Exam: US Abdomen Complete Exam date and time: 02/19/2019 10:47 PM Clinical history: 23 years old, male; Abdominal pain; Other: Luq pain; Additional info: Epigastric pain, elev lfts/bili, fever, spleen TECHNIQUE: Imaging protocol: Real-time ultrasound of the abdomen with image documentation. COMPARISON: CT ABD/PEL W/IV CONTRAST ONLY 02/19/2019 8:15 PM FINDINGS: Liver: The liver echogenicity is slightly increased and the liver echotexture is slightly heterogeneous. No intrahepatic bile duct dilatation or focal hepatic lesion is seen. Gallbladder: The gallbladder is contracted. No gallstones or wall abnormality are identified. No pericholecystic fluid. The Common bile duct: The common bile duct has a normal caliber, measuring 2.3 mm. Pancreas: Visualized pancreas is unremarkable. Right kidney: Normal. No mass. No hydronephrosis. Left kidney: Normal. No mass. No hydronephrosis. Spleen: The spleen is enlarged, measuring 12.8 cm x 12.6 cm x 5.8 cm. No focal splenic lesion is identified. Aorta: Normal caliber. No aneurysm. Inferior vena cava: Not visualized. IMPRESSION: 1. Splenomegaly. 2. Heterogeneous appearing liver echotexture, with mild increased echogenicity. This may be secondary to fatty infiltration, as well as other infiltrative hepatic disorders. Further clinical workup is recommended. 3. Contracted gallbladder. Electronically signed by: Cade James On 02/19/2019 23:12:11 PM
[2019-02-20 00:16] LABS: MONO REFLEX EBV COMP NEGATIVE (NEGATIVE)
[2019-02-20] MEDS ORDERED: ONDA4TAB6 PO (00:47)
[2019-02-20 00:55] VITALS: BP 119/57
[2019-02-21 10:44] LABS: HEPATITIS B SURFACE ANTIGEN NEGATIVE (NEGATIVE)
[2019-02-21 11:09] LABS: HEPATITIS C VIRUS ABY INDEX 0.2 INDEX (<0.8)
[2019-02-21 11:10] LABS: HEPATITIS B CORE ANTIBODY IGM NEGATIVE (NEGATIVE)
[2019-02-21 11:29] LABS: HEPATITIS A ANTIBODY IGM POSITIVE (NEGATIVE)
--- NOTE | 2019-02-22 12:42 | ED PDOC ---
Post-Departure Follow-Up vidya ozuna faed formal report of asad jefferson for fu Diane Sandoval MD Feb 22, 2019 12:42
--- NOTE | 2019-02-22 18:52 | ED PDOC ---
Post-Departure Follow-Up vidya ozuna faxed formal report of ct abd/pf ro fu Diane Sandoval MD Feb 22, 2019 18:52
[2019-02-23 00:06] LABS: EBV AB TO NUCLEAR ANTIGEN 31.1 U/mL (0.0-17.9); EBV VIRAL CAPSID AG IgM <36.0 U/mL (0.0-35.9)
== END 2019-02-20 00:56 | disposition home or self-care (01) ==
LOC: M ED 18:31
DX: R10.13 Epigastric pain (principal); R16.1 Splenomegaly, not elsewhere classified; K76.0 Fatty (change of) liver, not elsewhere classified; J45.909 Unspecified asthma, uncomplicated; F17.210 Nicotine dependence, cigarettes, uncomplicated; Z88.0 Allergy status to penicillin; Z88.1 Allergy status to other antibiotic agents; Z88.8 Allergy status to other drugs, medicaments and biological substances
CPT/HCPCS: 36415; 74177; 76700; 80053; 81001; 82550; 83690; 85025; 85610; 85730; 86308; 86663; 86664; 86665; 86705; 86709; 86803; 87340; 96361; 96374; 96375; 99284; J1885; J2405; Q9967

== ENCOUNTER → 2019-02-23 | Outpatient (CLI) | payer OTHER ==
[~2019-02-23] MED LIST changes: +ONDA4TAB6 PO
[2019-02-23 14:16] LABS: HEMATOCRIT 46.9 % (42.0-52.0); HEMOGLOBIN 15.7 g/dl (13.5-17.5); MEAN CORPUSCULAR HEMOGLOBIN 29.8 pg (27.0-33.0); MEAN CORPUSCULAR HGB CONC 33.5 g/dl (32.0-36.5); PLATELET COUNT, AUTOMATED 211 10^3/uL (150-450); RED BLOOD COUNT 5.27 10^6/uL (4.30-6.10); WHITE BLOOD COUNT 5.4 10^3/uL (4.0-10.0)
[2019-02-23 14:41] LABS: ALBUMIN 2.9 GM/DL (3.2-5.2); ALT/SGPT 1612 U/L (12-78); BILIRUBIN,TOTAL 10.8 MG/DL (0.2-1.0); BLOOD UREA NITROGEN 9 MG/DL (7-18); CALCIUM LEVEL 8.7 MG/DL (8.5-10.1); CARBON DIOXIDE LEVEL 33 MEQ/L (21-32); CHLORIDE LEVEL 103 MEQ/L (98-107); CREATININE FOR GFR 0.79 MG/DL (0.70-1.30); GLOMERULAR FILTRATION RATE > 60.0 (>60); GLUCOSE, FASTING 99 MG/DL (70-100); SODIUM LEVEL 140 MEQ/L (136-145); TOTAL PROTEIN 6.4 GM/DL (6.4-8.2)
== END ==
LOC: M LAB 13:32
PROVIDERS: ATTEND Nurse Practitioner Adult Health
DX: B15.9 Hepatitis A without hepatic coma (principal)

== ENCOUNTER → 2019-03-03 | Outpatient (CLI) | payer OTHER ==
[2019-03-03 20:29] LABS: HEMATOCRIT 47.7 % (42.0-52.0); HEMOGLOBIN 15.1 g/dl (13.5-17.5); MEAN CORPUSCULAR HEMOGLOBIN 29.7 pg (27.0-33.0); MEAN CORPUSCULAR HGB CONC 31.7 g/dl (32.0-36.5); MEAN CORPUSCULAR VOLUME 93.9 fl (80.0-96.0); PLATELET COUNT, AUTOMATED 257 10^3/uL (150-450); RED BLOOD COUNT 5.08 10^6/uL (4.30-6.10); WHITE BLOOD COUNT 6.7 10^3/uL (4.0-10.0)
[2019-03-03 20:36] LABS: ALBUMIN 3.6 GM/DL (3.2-5.2); ALT/SGPT 344 U/L (12-78); BILIRUBIN,TOTAL 1.9 MG/DL (0.2-1.0); BLOOD UREA NITROGEN 16 MG/DL (7-18); CALCIUM LEVEL 9.6 MG/DL (8.5-10.1); CARBON DIOXIDE LEVEL 31 MEQ/L (21-32); CHLORIDE LEVEL 104 MEQ/L (98-107); CREATININE FOR GFR 0.93 MG/DL (0.70-1.30); GLOMERULAR FILTRATION RATE > 60.0 (>60); GLUCOSE, FASTING 95 MG/DL (70-100); POTASSIUM SERUM 5.1 MEQ/L (3.5-5.1); SODIUM LEVEL 139 MEQ/L (136-145); TOTAL PROTEIN 7.4 GM/DL (6.4-8.2)
== END ==
LOC: M WUC 16:52
PROVIDERS: ATTEND Nurse Practitioner Adult Health
DX: B15.9 Hepatitis A without hepatic coma (principal)

== ENCOUNTER 2019-04-20 17:30 | Emergency (ER) | payer OTHER ==
[~2019-04-20] VITALS: Ht 167.6 cm; Wt 64.7 kg
[~2019-04-20 17:30] MED LIST changes: +RALTEGRAVIR 400 MG TAB (ISENTRESS) PO SCH; +TRUVADA 200MG/300MG TABLET PO SCH
[2019-04-20] MEDS ORDERED: RALT40TA PO (18:14)
[2019-04-20] MEDS ORDERED: TRUVTAB PO (18:14)
[2019-04-20] MEDS ORDERED: EXPOSURE KIT-ADULT 7 DAY SUPPLY PO ONE (18:15)
[2019-04-20] MEDS ORDERED: NS 1,000 ML IV ONE (18:15)
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
[2019-04-20 19:09] LABS: BASO % 0.4 % (0.0-1.0); EOS # 0.2 10^3/uL (0.0-0.5); EOS % 1.7 % (0.0-3.0); HEMATOCRIT 42.6 % (42.0-52.0); HEMOGLOBIN 15.2 g/dl (13.5-17.5); LYMPH # 3.6 10^3/uL (1.5-5.0); LYMPH % 38.7 % (24.0-44.0); MEAN CORPUSCULAR HEMOGLOBIN 30.8 pg (27.0-33.0); MEAN CORPUSCULAR HGB CONC 35.7 g/dl (32.0-36.5); MEAN CORPUSCULAR VOLUME 86.2 fl (80.0-96.0); MONO # 0.8 10^3/uL (0.0-0.8); MONO % 8.5 % (0.0-5.0); NEUTROPHILS # 4.7 10^3/uL (1.5-8.5); NEUTROPHILS % 50.5 % (36.0-66.0); PLATELET COUNT, AUTOMATED 219 10^3/uL (150-450); RED BLOOD COUNT 4.94 10^6/uL (4.30-6.10); WHITE BLOOD COUNT 9.4 10^3/uL (4.0-10.0)
[2019-04-20 19:31] LABS: ALBUMIN 4.1 GM/DL (3.2-5.2); ALT/SGPT 64 U/L (12-78); BLOOD UREA NITROGEN 11 MG/DL (7-18); CALCIUM LEVEL 9.2 MG/DL (8.5-10.1); CARBON DIOXIDE LEVEL 26 MEQ/L (21-32); CHLORIDE LEVEL 105 MEQ/L (98-107); CPK CREATINE PHOSPHOKINASE 441 U/L (39-308); CREATININE FOR GFR 0.92 MG/DL (0.70-1.30); GLOMERULAR FILTRATION RATE > 60.0 (>60); GLUCOSE, FASTING 88 MG/DL (70-100); POTASSIUM SERUM 3.3 MEQ/L (3.5-5.1); SODIUM LEVEL 139 MEQ/L (136-145); TOTAL PROTEIN 6.8 GM/DL (6.4-8.2)
--- NOTE | 2019-04-20 20:23 | REP ---
LUMBOSACRAL SPINE: Five views lumbosacral spine are performed. There is no compression fracture or malalignment. There is normal lumbar lordosis with no spondylolysis or spondylolisthesis. Posterior elements are intact. Disc spaces are well preserved. IMPRESSION: No fracture or dislocation. Electronically Signed by Wilfrido Johnson MD 04/21/2019 08:47 A
--- NOTE | 2019-04-20 20:24 | REP ---
RIGHT KNEE, FIVE VIEWS: FINDINGS: There is no evidence of an acute fracture, dislocation or intrinsic bone disease. IMPRESSION: No fracture or dislocation. Electronically Signed by Wilfrido Johnson MD 04/21/2019 08:47 A
--- NOTE | 2019-04-20 20:30 | REP ---
PELVIS AND RIGHT HIP: AP view of the pelvis and two views of right hip performed. There is no acute fracture, dislocation or intrinsic bone disease. IMPRESSION: No fracture or dislocation. Electronically Signed by Wilfrido Johnson MD 04/21/2019 08:47 A
[2019-04-20 20:31] LABS: HIV 1&2 SCREEN CENTAUR NEGATIVE (NEGATIVE)
[2019-04-20] MEDS ORDERED: diphenhydrAMINE INJ 50MG/ML VIAL (J1200) IV STA (20:38)
[2019-04-20] MEDS ORDERED: DOXY100C37 PO (20:43)
[2019-04-20] MEDS ORDERED: cefTRIAXone SOD 500 MG in D5W MINI-BAG PLUS 50 ML IV ONE (20:45)
[2019-04-20 20:54] VITALS: BP 137/65
[2019-04-21] MEDS ORDERED: TRUVADA 200MG/300MG TABLET PO ONE (10:15)
[2019-04-21] MEDS ORDERED: RALTEGRAVIR 400 MG TAB (ISENTRESS) PO ONE (10:15)
[2019-04-22 11:56] LABS: HEPATITIS B SURFACE ANTIBODY NEGATIVE (POSITIVE)
[2019-04-22 12:05] LABS: HEPATITIS B SURFACE ANTIGEN NEGATIVE (NEGATIVE)
[2019-04-22 12:33] LABS: HEPATITIS C VIRUS ABY INDEX 0.2 INDEX (<0.8)
== END 2019-04-20 21:47 | disposition home or self-care (01) ==
LOC: M ED 17:30
DX: S30.0XXA Contusion of lower back and pelvis, initial encounter (principal); S80.01XA Contusion of right knee, initial encounter; X58.XXXA Exposure to other specified factors, initial encounter; Y92.008 Other place in unspecified non-institutional (private) residence as the place of occurrence of the external cause; K75.9 Inflammatory liver disease, unspecified; Z87.820 Personal history of traumatic brain injury; F15.21 Other stimulant dependence, in remission; Z88.0 Allergy status to penicillin; Z88.1 Allergy status to other antibiotic agents; F17.210 Nicotine dependence, cigarettes, uncomplicated
CPT/HCPCS: 70450; 72110; 73502; 73564; 80053; 82550; 85025; 86706; 86780; 86803; 87340; 87389; 96361; 96365; 99283; J0696